=== PATIENT | female | born 1955 | race Caucasian/White ===

== ENCOUNTER 2021-09-17 13:36 | Inpatient (IN) | payer BC ==
[~2021-09-17] VITALS: Ht 170.2 cm; Wt 63.5 kg
[~2021-09-17 13:36] MED LIST: CHLORDIAZEPO-A1 EACH PO; MULTIPLE VITAMINS; NIACIN FLUSH F400 MG
[2021-09-17] MEDS ORDERED: DILTIAZEM HCL 5 MG/ML 5 ML VIAL IV STA (14:05)
[2021-09-17] MEDS ORDERED: METOPROLOL TARTRATE INJ 1 MG/ML VIAL IV STA (14:05)
[2021-09-17] MEDS ORDERED: DIGOXIN INJ 0.25 MG/ML 2 ML AMP IV STA (14:05)
[2021-09-17 14:35] LABS: BASOPHILS # (AUTO) 0.1 (0.0-0.1); HEMATOCRIT 43.7 % (34.2-44.1); HEMOGLOBIN 15.6 g/dL (12.0-16.0); LYMPHOCYTES # (AUTO) 1.2 (1.0-3.2); LYMPHOCYTES % 20.1 % (18.0-39.1); MEAN CORPUSCULAR HEMOGLOBIN 30.8 pg (28-32); MEAN CORPUSCULAR HGB CONC 35.7 g/dL (31-35); MEAN CORPUSCULAR VOLUME 86.4 fL (81-99); MONOCYTES # (AUTO) 0.6 (0.2-0.8); MONOCYTES % 9.4 % (4.4-11.3); NEUTROPHILS # (AUTO) 4.2 (2.1-6.9); NEUTROPHILS % 68.2 % (38.7-80.0); PLATELET COUNT 547 x10e3/uL (140-360); RED BLOOD COUNT 5.06 x10e6/uL (3.6-5.1); RED CELL DISTRIBUTION WIDTH 13.5 % (11.7-14.4)
[2021-09-17] MEDS: SODIUM CHLORIDE 0.9% 1000ML 1,000 ML IV SCH ×2 (14:40→22:47)
[2021-09-17 14:57] LABS: ALBUMIN 3.2 g/dL (3.5-5.0); ALBUMIN/GLOBULIN RATIO 0.9 (0.8-2.0); ANION GAP 18.5 mmol/L (8-16); CALCIUM 10.2 mg/dL (8.4-10.2); CREATININE, SERUM 0.95 mg/dL (0.57-1.11); POTASSIUM 3.5 mmol/L (3.5-5.1)
[2021-09-17 15:03] LABS: CREATINE KINASE MB 6.7 ng/mL (0-5.0)
[2021-09-17 15:53] LABS: CLARITY,URINE SL CLOUDY (CLEAR); COLOR,URINE AMBER (YELLOW); KETONES,URINE 1+ (NEGATIVE); LEUKOCYTE ESTERASE ,URINE NEGATIVE (NEGATIVE); NITRITE,URINE NEGATIVE (NEGATIVE); PROTEIN,URINE DIPSTICK 2+ (NEGATIVE); URINE UROBILINOGEN 1 mg/dL (0.2 - 1)
[2021-09-17 16:06] LABS: AMORPHOUS SEDIMENT,URINE MODERATE (FEW); BACTERIA,URINE MODERATE /HPF; EPITHELIAL CELLS,URINE FEW /LPF; RBC,URINE 0-5 /HPF (0-5); WBC,URINE (MAN) 0-5 /HPF (0-5)
[2021-09-17 16:54] VITALS: BP 158/80
[2021-09-17 16:55] VITALS: BP 158/80
[2021-09-17 16:56] VITALS: BP 158/80
[2021-09-17 17:12] LABS: BAND NEUTROPHILS % (MANUAL) 5 %; LYMPHOCYTES % (MANUAL) 30 % (19-48); METAMYELOCYTES % (MANUAL) 26 % (0-0); MONOCYTES % (MANUAL) 11 % (3.4-9.0); MYELOCYTES % (MANUAL) 4 % (0-0); NEUTROPHILS % (MANUAL) 23 % (40-74); PROMYELOCYTES % (MANUAL) 1 % (0-0)
[2021-09-17 17:13] LABS: PLATELET ESTIMATE MARKEDLY INCREASED; PLATELET MORPHOLOGY COMMENT MODERATE GIANT
[2021-09-17 17:14] LABS: RBC MORPHOLOGY COMMENT NORMAL
[2021-09-17] MEDS: PIPERACILLIN/TAZOBACTAM 3.375 GM in SODIUM CHLORIDE 0.9% 50ML 50 ML IV SCH ×2 (17:20→23:31)
[2021-09-17] MEDS ORDERED: IOPAMIDOL 370 MG/ML 200 ML INFUS..BTL INJ ONE (18:53)
[2021-09-17] MEDS ORDERED: SODIUM CHLORIDE 0.9% 50ML 50 ML ONE (18:53)
[2021-09-17] MEDS ORDERED: METOPROLOL TARTRATE INJ 1 MG/ML VIAL IV ONE (19:05)
[2021-09-17] MEDS ORDERED: DIGOXIN INJ 0.25 MG/ML 2 ML AMP IV ONE (19:05)
[2021-09-17 21:05] VITALS: BP 165/76
[2021-09-17 23:00] VITALS: BP 173/69
[2021-09-17] MEDS: METOCLOPRAMIDE HCL 10 MG/2ML VIAL IV SCH (23:31)
[2021-09-18] VITALS (7 sets, daily range): BP systolic 149–176; BP diastolic 74–87
[2021-09-18] MEDS: SODIUM CHLORIDE 0.9% 1000ML 1,000 ML IV SCH (05:07)
[2021-09-18] MEDS: METOCLOPRAMIDE HCL 10 MG/2ML VIAL IV SCH ×4 (05:07→23:19)
[2021-09-18] MEDS: PIPERACILLIN/TAZOBACTAM 3.375 GM in SODIUM CHLORIDE 0.9% 50ML 50 ML IV SCH ×4 (05:07→23:19)
[2021-09-18 05:21] LABS: BASOPHILS # (AUTO) 0.1 (0.0-0.1); BASOPHILS % 1.3 % (0.0-1.0); EOSINOPHILS % 0.2 % (0.0-6.0); HEMATOCRIT 41.7 % (34.2-44.1); HEMOGLOBIN 14.5 g/dL (12.0-16.0); LYMPHOCYTES # (AUTO) 1.2 (1.0-3.2); LYMPHOCYTES % 19.4 % (18.0-39.1); MEAN CORPUSCULAR HEMOGLOBIN 30.7 pg (28-32); MEAN CORPUSCULAR HGB CONC 34.8 g/dL (31-35); MEAN CORPUSCULAR VOLUME 88.3 fL (81-99); MONOCYTES # (AUTO) 0.5 (0.2-0.8); MONOCYTES % 7.7 % (4.4-11.3); NEUTROPHILS # (AUTO) 4.1 (2.1-6.9); NEUTROPHILS % 69.5 % (38.7-80.0); PLATELET COUNT 469 x10e3/uL (140-360); RED BLOOD COUNT 4.72 x10e6/uL (3.6-5.1); RED CELL DISTRIBUTION WIDTH 13.2 % (11.7-14.4)
[2021-09-18 05:35] LABS: ALBUMIN 2.8 g/dL (3.5-5.0); ALBUMIN/GLOBULIN RATIO 0.8 (0.8-2.0); ANION GAP 18.3 mmol/L (8-16); CALCIUM 9.2 mg/dL (8.4-10.2); CREATININE, SERUM 0.76 mg/dL (0.57-1.11); POTASSIUM 3.3 mmol/L (3.5-5.1)
[2021-09-18 06:20] LABS: CREATINE KINASE MB 3.1 ng/mL (0-5.0)
[2021-09-18 08:27] LABS: BAND NEUTROPHILS % (MANUAL) 18 %; LYMPHOCYTES % (MANUAL) 14 % (19-48); METAMYELOCYTES % (MANUAL) 5 % (0-0); MONOCYTES % (MANUAL) 15 % (3.4-9.0); NEUTROPHILS % (MANUAL) 48 % (40-74); NUCLEATED RED BLOOD CELLS 1
[2021-09-18 08:28] LABS: PLATELET ESTIMATE ADEQUATE; PLATELET MORPHOLOGY COMMENT NORMAL
[2021-09-18 08:29] LABS: RBC MORPHOLOGY COMMENT NORMAL
[2021-09-18] MEDS ORDERED: POTASSIUM CHLORIDE 20 MEQ TAB CR PO NR (09:00)
[2021-09-18] MEDS: DEXTROSE 5%/0.9% SOD CHL 1,000 ML IV SCH ×2 (10:28→22:50)
[2021-09-18] MEDS: CLONIDINE HCL 0.3MG/24 HR PATCH TOP SCH (10:28)
[2021-09-18 13:09] LABS: ANION GAP 16.2 mmol/L (8-16); CALCIUM 8.7 mg/dL (8.4-10.2); CREATININE, SERUM 0.73 mg/dL (0.57-1.11); POTASSIUM 3.2 mmol/L (3.5-5.1)
[2021-09-18 13:44] LABS: CREATINE KINASE MB 3.1 ng/mL (0-5.0)
[2021-09-18] MEDS ORDERED: AMIODARONE 900MG 900 MG in Premix Bag 1 BAG IV ONE (13:45)
[2021-09-18] MEDS ORDERED: AMIODARONE HCL 150MG 100 ML IV ONE (14:00)
[2021-09-18] MEDS: AMIODARONE HCL 360MG 200 ML IV SCH ×2 (17:13→17:15)
[2021-09-18] MEDS: AMIODARONE 900MG 500 ML IV SCH ×3 (17:15→23:15)
[2021-09-18] MEDS ORDERED: AMIODARONE HCL 360MG 200 ML IV SCH (20:00)
[2021-09-18 21:13] LABS: CREATINE KINASE MB 2.5 ng/mL (0-5.0)
[2021-09-19] VITALS (13 sets, daily range): BP systolic 154–189; BP diastolic 69–106
[2021-09-19] MEDS ORDERED: ACETAMINOPHEN 1000 MG/100 ML IV SCH
[2021-09-19] MEDS: PIPERACILLIN/TAZOBACTAM 3.375 GM in SODIUM CHLORIDE 0.9% 50ML 50 ML IV SCH ×3 (06:28→17:53)
[2021-09-19] MEDS: METOCLOPRAMIDE HCL 10 MG/2ML VIAL IV SCH ×3 (06:28→17:38)
[2021-09-19] MEDS: METOPROLOL TARTRATE INJ 1 MG/ML VIAL IV PRN ×3 (09:00→22:14)
[2021-09-19] MEDS: ACETAMINOPHEN 1000 MG/100 ML IV PRN ×2 (09:26→17:15)
[2021-09-19 09:36] LABS: ALBUMIN 2.5 g/dL (3.5-5.0); ALBUMIN/GLOBULIN RATIO 0.9 (0.8-2.0); ANION GAP 12.8 mmol/L (8-16); CALCIUM 8.1 mg/dL (8.4-10.2); CREATININE, SERUM 0.62 mg/dL (0.57-1.11); POTASSIUM 3.8 mmol/L (3.5-5.1)
[2021-09-19] MEDS ORDERED: BISACODYL 5 MG TAB EC PO ONE ×3 (14:00→23:45)
[2021-09-19] MEDS: DEXTROSE 5%/0.9% SOD CHL 1,000 ML IV SCH (14:15)
[2021-09-19] MEDS ORDERED: CITRATE OF MAGNESIA 300ML BOTTLE PO ONE (22:00)
[2021-09-19] MEDS: AMIODARONE 900MG 500 ML IV SCH (22:54)
[2021-09-19] MEDS: ONDANSETRON HCL INJ 2MG/ML 2ML 2 MG/ML VIAL IV PRN (22:54)
[2021-09-20] VITALS (10 sets, daily range): BP systolic 105–177; BP diastolic 65–99
[2021-09-20] MEDS: METOCLOPRAMIDE HCL 10 MG/2ML VIAL IV SCH ×4 (00:16→17:42)
[2021-09-20] MEDS: PIPERACILLIN/TAZOBACTAM 3.375 GM in SODIUM CHLORIDE 0.9% 50ML 50 ML IV SCH ×4 (00:16→17:43)
[2021-09-20] MEDS: ACETAMINOPHEN 1000 MG/100 ML IV PRN ×2 (01:00→17:43)
[2021-09-20] MEDS ORDERED: CITRATE OF MAGNESIA 300ML BOTTLE PO ONE ×2 (05:00→08:00)
[2021-09-20] MEDS: ONDANSETRON HCL INJ 2MG/ML 2ML 2 MG/ML VIAL IV PRN (05:02)
[2021-09-20] MEDS: METOPROLOL TARTRATE INJ 1 MG/ML VIAL IV PRN (06:50)
[2021-09-20] MEDS: PROMETHAZINE 12.5MG/ NACL 0.9% 12.5 MG/50 ML BAG IV PRN ×2 (08:45→21:24)
[2021-09-20] MEDS: DEXTROSE 5%/0.9% SOD CHL 1,000 ML IV SCH (09:58)
[2021-09-20] MEDS ORDERED: LACTULOSE SYRUP 20 GM/30 ML UDC PO ONE ×2 (11:30→21:00)
[2021-09-20 18:00] LABS: ANION GAP 12.8 mmol/L (8-16); CALCIUM 8.3 mg/dL (8.4-10.2); CREATININE, SERUM 0.64 mg/dL (0.57-1.11)
[2021-09-20 18:02] LABS: POTASSIUM 2.8 mmol/L (3.5-5.1)
[2021-09-21] VITALS (10 sets, daily range): BP systolic 130–188; BP diastolic 56–80
[2021-09-21] MEDS: METOCLOPRAMIDE HCL 10 MG/2ML VIAL IV SCH ×4 (00:41→17:12)
[2021-09-21] MEDS: PIPERACILLIN/TAZOBACTAM 3.375 GM in SODIUM CHLORIDE 0.9% 50ML 50 ML IV SCH ×4 (00:42→17:12)
[2021-09-21] MEDS: DEXTROSE 5%/0.9% SOD CHL 1,000 ML IV SCH ×3 (04:10→17:12)
[2021-09-21] MEDS: AMIODARONE 900MG 500 ML IV SCH ×2 (06:39→22:45)
[2021-09-21] MEDS: ACETAMINOPHEN 1000 MG/100 ML IV PRN ×2 (06:40→23:15)
[2021-09-21] MEDS: PROMETHAZINE 12.5MG/ NACL 0.9% 12.5 MG/50 ML BAG IV PRN (08:34)
[2021-09-21 11:59] LABS: BASOPHILS # (AUTO) 0.1 (0.0-0.1); BASOPHILS % 0.9 % (0.0-1.0); EOSINOPHILS % 0.1 % (0.0-6.0); HEMATOCRIT 41.7 % (34.2-44.1); HEMOGLOBIN 14.3 g/dL (12.0-16.0); LYMPHOCYTES # (AUTO) 1.6 (1.0-3.2); LYMPHOCYTES % 20.6 % (18.0-39.1); MEAN CORPUSCULAR HEMOGLOBIN 30.7 pg (28-32); MEAN CORPUSCULAR HGB CONC 34.3 g/dL (31-35); MEAN CORPUSCULAR VOLUME 89.5 fL (81-99); MONOCYTES # (AUTO) 0.8 (0.2-0.8); MONOCYTES % 9.9 % (4.4-11.3); NEUTROPHILS # (AUTO) 5.3 (2.1-6.9); NEUTROPHILS % 67.1 % (38.7-80.0); PLATELET COUNT 387 x10e3/uL (140-360); RED BLOOD COUNT 4.66 x10e6/uL (3.6-5.1); RED CELL DISTRIBUTION WIDTH 13.9 % (11.7-14.4)
[2021-09-21 12:27] LABS: ANION GAP 12.8 mmol/L (8-16); CALCIUM 8.4 mg/dL (8.4-10.2); CREATININE, SERUM 0.67 mg/dL (0.57-1.11); POTASSIUM 2.8 mmol/L (3.5-5.1)
[2021-09-21] MEDS ORDERED: PROPOFOL IV EMULSION 10 MG/ML 20 ML VIAL ONE (12:32)
[2021-09-21] MEDS ORDERED: HYOSCYAMINE SULFATE 0.5 MG/ML INJ ONE (12:32)
[2021-09-21] MEDS ORDERED: LIDOCAINE HCL 2% LOCAL INJ 5 ML SDV VIAL INJ ONE (12:32)
[2021-09-21] MEDS ORDERED: POTASSIUM CHLORIDE 20MEQ/100ML 200 ML IV ONE (13:30)
[2021-09-21] MEDS: FUROSEMIDE INJ 10 MG/ML 2 ML VIAL IV SCH (17:12)
[2021-09-21] MEDS ORDERED: OXYMETAZOLINE HCL 0.05% NAS 1 SPRAY BTL ONE (18:43)
[2021-09-21] MEDS ORDERED: CHLORASEPTIC SPRAY 177 ML BTL MM PRN (19:45)
[2021-09-22] VITALS (11 sets, daily range): BP systolic 114–164; BP diastolic 55–70
[2021-09-22] MEDS: PIPERACILLIN/TAZOBACTAM 3.375 GM in SODIUM CHLORIDE 0.9% 50ML 50 ML IV SCH ×5 (00:52→23:49)
[2021-09-22] MEDS: METOCLOPRAMIDE HCL 10 MG/2ML VIAL IV SCH ×5 (00:52→23:49)
[2021-09-22 05:23] LABS: ANION GAP 11.9 mmol/L (8-16); CREATININE, SERUM 0.67 mg/dL (0.57-1.11)
[2021-09-22 05:35] LABS: POTASSIUM 2.9 mmol/L (3.5-5.1)
[2021-09-22] MEDS: DEXTROSE 5%/0.9% SOD CHL 1,000 ML IV SCH ×2 (06:07→20:10)
[2021-09-22] MEDS: FUROSEMIDE INJ 10 MG/ML 2 ML VIAL IV SCH ×2 (08:28→17:48)
[2021-09-22] MEDS ORDERED: POTASSIUM CHLORIDE 20MEQ/100ML 300 ML IV ONE (09:30)
[2021-09-22] MEDS ORDERED: MIDAZOLAM HCL 2 MG/2 ML VIAL ONE (13:21)
[2021-09-22] MEDS ORDERED: FENTANYL CITRATE/PF 100MCG/2 ML INJ ONE (13:21)
[2021-09-22] MEDS ORDERED: ENOXAPARIN SODIUM INJ 100 MG/ML SYR SC SCH (14:00)
[2021-09-22] MEDS: ENOXAPARIN SOD INJ 60 MG/0.6 ML SYR SC SCH (15:12)
[2021-09-22 19:29] LABS: ANION GAP 12.8 mmol/L (8-16); CALCIUM 8.1 mg/dL (8.4-10.2); CREATININE, SERUM 0.67 mg/dL (0.57-1.11); POTASSIUM 3.8 mmol/L (3.5-5.1)
[2021-09-22] MEDS: AMIODARONE 900MG 500 ML IV SCH (21:37)
[2021-09-22] MEDS: ACETAMINOPHEN 1000 MG/100 ML IV PRN (23:49)
[2021-09-23] VITALS (9 sets, daily range): BP systolic 121–172; BP diastolic 55–67
[2021-09-23] MEDS: ENOXAPARIN SOD INJ 60 MG/0.6 ML SYR SC SCH (02:04)
[2021-09-23] MEDS ORDERED: ACETAMINOPHEN 1000 MG/100 ML IV PRN ×2 (02:30→11:00)
[2021-09-23] MEDS: METOCLOPRAMIDE HCL 10 MG/2ML VIAL IV SCH ×3 (05:40→17:09)
[2021-09-23] MEDS: PIPERACILLIN/TAZOBACTAM 3.375 GM in SODIUM CHLORIDE 0.9% 50ML 50 ML IV SCH ×3 (05:40→17:09)
[2021-09-23] MEDS: FUROSEMIDE INJ 10 MG/ML 2 ML VIAL IV SCH ×2 (08:23→16:43)
[2021-09-23] MEDS: DEXTROSE 5%/0.9% SOD CHL 1,000 ML IV SCH (08:24)
[2021-09-23] MEDS ORDERED: DIPHENHYDRAMINE HCL INJ 50 MG/ML VIAL IM PRN (11:00)
[2021-09-23] MEDS ORDERED: MORPHINE SULFATE 1 MG/ML 30ML PCA IV PRN (11:00)
[2021-09-23] MEDS ORDERED: NALOXONE HCL INJ 0.4 MG/ML AMP IV PRN (11:00)
[2021-09-23] MEDS ORDERED: ONDANSETRON HCL INJ 2MG/ML 2ML 2 MG/ML VIAL IV PRN (11:00)
[2021-09-23] MEDS ORDERED: MORPHINE SULFATE 1 MG/ML 30ML PCA ONE (11:26)
[2021-09-23] MEDS: SODIUM CHLORIDE 0.9% 250ML IRRIG IR SCH ×3 (12:25→19:31)
[2021-09-23] MEDS: DEXTROSE 5%/LACTATED RINGERS 1,000 ML IV SCH ×2 (12:25→20:46)
[2021-09-23] MEDS ORDERED: SEVOFLURANE INHAL SOLN 250 ML PEN BTL ONE (12:39)
[2021-09-23] MEDS ORDERED: DEXAMETHASONE SOD PHOS INJ 4 MG/ML SDV ONE (12:39)
[2021-09-23] MEDS ORDERED: EPHEDRINE SULFATE INJ 50 MG/ML VIAL ONE (12:39)
[2021-09-23] MEDS ORDERED: ROCURONIUM BROMIDE 10 MG/ML 5ML VIAL IV ONE (12:39)
[2021-09-23] MEDS ORDERED: ONDANSETRON HCL INJ 2MG/ML 2ML 2 MG/ML VIAL ONE (12:39)
[2021-09-23] MEDS ORDERED: POVIDONE IODINE 0.05% 0.05 % ML PO ONE (12:39)
[2021-09-23] MEDS ORDERED: LIDOCAINE HCL 2% LOCAL INJ 5 ML SDV VIAL INJ ONE (12:39)
[2021-09-23] MEDS ORDERED: PROPOFOL IV EMULSION 10 MG/ML 20 ML VIAL ONE (12:39)
[2021-09-24] VITALS (12 sets, daily range): BP systolic 108–160; BP diastolic 50–95
[2021-09-24] MEDS: SODIUM CHLORIDE 0.9% 250ML IRRIG IR SCH ×6 (00:27→22:05)
[2021-09-24] MEDS: PIPERACILLIN/TAZOBACTAM 3.375 GM in SODIUM CHLORIDE 0.9% 50ML 50 ML IV SCH ×4 (00:55→17:38)
[2021-09-24] MEDS: AMIODARONE 900MG 500 ML IV SCH (00:55)
[2021-09-24] MEDS: METOCLOPRAMIDE HCL 10 MG/2ML VIAL IV SCH ×2 (00:55→05:32)
[2021-09-24] MEDS ORDERED: PIPERACILLIN/TAZOBACTAM 3.375 GM VIAL ONE (05:28)
[2021-09-24] MEDS: DEXTROSE 5%/LACTATED RINGERS 1,000 ML IV SCH ×3 (05:29→22:05)
[2021-09-24 06:01] LABS: BASOPHILS # (AUTO) 0.2 (0.0-0.1); BASOPHILS % 0.8 % (0.0-1.0); HEMATOCRIT 33.3 % (34.2-44.1); HEMOGLOBIN 10.9 g/dL (12.0-16.0); LYMPHOCYTES # (AUTO) 1.6 (1.0-3.2); LYMPHOCYTES % 8.9 % (18.0-39.1); MEAN CORPUSCULAR HEMOGLOBIN 30.1 pg (28-32); MEAN CORPUSCULAR HGB CONC 32.7 g/dL (31-35); MONOCYTES # (AUTO) 0.7 (0.2-0.8); MONOCYTES % 3.6 % (4.4-11.3); NEUTROPHILS # (AUTO) 15.2 (2.1-6.9); NEUTROPHILS % 85.1 % (38.7-80.0); PLATELET COUNT 265 x10e3/uL (140-360); RED BLOOD COUNT 3.62 x10e6/uL (3.6-5.1); RED CELL DISTRIBUTION WIDTH 14.4 % (11.7-14.4)
[2021-09-24 06:36] LABS: ANION GAP 11.3 mmol/L (8-16); CALCIUM 7.7 mg/dL (8.4-10.2); CREATININE, SERUM 0.61 mg/dL (0.57-1.11); POTASSIUM 3.3 mmol/L (3.5-5.1)
[2021-09-24] MEDS: FUROSEMIDE INJ 10 MG/ML 2 ML VIAL IV SCH ×2 (09:00→17:00)
[2021-09-24] MEDS ORDERED: KCL 20 MEQ PACKET/ ORAL SOLN NG ONE (10:00)
[2021-09-24] MEDS ORDERED: POTASSIUM CHLORIDE 10MEQ/100ML 200 ML IV ONE (10:30)
[2021-09-24] MEDS: ENOXAPARIN SOD INJ 60 MG/0.6 ML SYR SC SCH (14:00)
[2021-09-24] MEDS ORDERED: MORPHINE SULFATE 1 MG/ML 30ML PCA IV PRN (14:15)
[2021-09-25] VITALS (8 sets, daily range): BP systolic 132–175; BP diastolic 60–75
[2021-09-25] MEDS: PIPERACILLIN/TAZOBACTAM 3.375 GM in SODIUM CHLORIDE 0.9% 50ML 50 ML IV SCH ×4 (00:21→16:57)
[2021-09-25] MEDS: ENOXAPARIN SOD INJ 60 MG/0.6 ML SYR SC SCH ×2 (02:12→14:37)
[2021-09-25] MEDS: SODIUM CHLORIDE 0.9% 250ML IRRIG IR SCH ×5 (04:25→19:00)
[2021-09-25 05:05] LABS: BASOPHILS # (AUTO) 0.1 (0.0-0.1); BASOPHILS % 0.4 % (0.0-1.0); HEMATOCRIT 27.4 % (34.2-44.1); HEMOGLOBIN 8.9 g/dL (12.0-16.0); LYMPHOCYTES # (AUTO) 1.4 (1.0-3.2); LYMPHOCYTES % 9.4 % (18.0-39.1); MEAN CORPUSCULAR HEMOGLOBIN 30.6 pg (28-32); MEAN CORPUSCULAR HGB CONC 32.5 g/dL (31-35); MEAN CORPUSCULAR VOLUME 94.2 fL (81-99); MONOCYTES # (AUTO) 0.7 (0.2-0.8); MONOCYTES % 4.3 % (4.4-11.3); NEUTROPHILS # (AUTO) 12.6 (2.1-6.9); PLATELET COUNT 221 x10e3/uL (140-360); RED BLOOD COUNT 2.91 x10e6/uL (3.6-5.1); RED CELL DISTRIBUTION WIDTH 14.6 % (11.7-14.4)
[2021-09-25] MEDS: DEXTROSE 5%/LACTATED RINGERS 1,000 ML IV SCH ×3 (05:54→23:42)
[2021-09-25 06:29] LABS: CREATININE, SERUM 0.53 mg/dL (0.57-1.11)
[2021-09-25] MEDS: CLONIDINE HCL 0.3MG/24 HR PATCH TOP SCH (08:46)
[2021-09-25] MEDS: FUROSEMIDE INJ 10 MG/ML 4 ML VIAL IV SCH ×2 (08:46→16:57)
[2021-09-25] MEDS ORDERED: POTASSIUM CHLORIDE 20MEQ/100ML 200 ML IV ONE (09:30)
[2021-09-26] VITALS (7 sets, daily range): BP systolic 126–142; BP diastolic 55–70
[2021-09-26] MEDS: ENOXAPARIN SOD INJ 60 MG/0.6 ML SYR SC SCH ×3 (01:09→21:31)
[2021-09-26] MEDS: PIPERACILLIN/TAZOBACTAM 3.375 GM in SODIUM CHLORIDE 0.9% 50ML 50 ML IV SCH ×2 (01:09→06:11)
[2021-09-26 05:47] LABS: BASOPHILS % 0.3 % (0.0-1.0); EOSINOPHILS % 0.2 % (0.0-6.0); HEMATOCRIT 27.8 % (34.2-44.1); HEMOGLOBIN 9.3 g/dL (12.0-16.0); LYMPHOCYTES # (AUTO) 1.6 (1.0-3.2); MEAN CORPUSCULAR HEMOGLOBIN 30.6 pg (28-32); MEAN CORPUSCULAR HGB CONC 33.5 g/dL (31-35); MEAN CORPUSCULAR VOLUME 91.4 fL (81-99); MONOCYTES # (AUTO) 0.6 (0.2-0.8); NEUTROPHILS # (AUTO) 12.4 (2.1-6.9); NEUTROPHILS % 83.3 % (38.7-80.0); PLATELET COUNT 267 x10e3/uL (140-360); RED BLOOD COUNT 3.04 x10e6/uL (3.6-5.1)
[2021-09-26 06:14] LABS: ANION GAP 9.8 mmol/L (8-16); CALCIUM 7.5 mg/dL (8.4-10.2); CREATININE, SERUM 0.52 mg/dL (0.57-1.11)
[2021-09-26] MEDS ORDERED: Morphine 4mg Syringe 4 MG/ML INJ IV PRN (06:15)
[2021-09-26 06:39] LABS: POTASSIUM 2.8 mmol/L (3.5-5.1)
[2021-09-26] MEDS ORDERED: POTASSIUM CHLORIDE 20 MEQ TAB CR PO ONE (07:20)
[2021-09-26] MEDS: HYDROCODONE/APAP 5MG-325MG TAB PO PRN ×2 (08:25→20:58)
[2021-09-26] MEDS: FUROSEMIDE INJ 10 MG/ML 4 ML VIAL IV SCH (08:27)
[2021-09-26] MEDS ORDERED: POTASSIUM CHLORIDE 20MEQ/100ML 300 ML IV ONE (08:30)
[2021-09-26] MEDS ORDERED: MAGNESIUM SULFATE 2GM/50ML 50 ML IV ONE (09:30)
[2021-09-26] MEDS: MAGNESIUM OXIDE 400 MG TAB PO SCH ×2 (11:52→18:17)
[2021-09-26 12:31] LABS: MAGNESIUM 1.7 MG/DL (1.3-2.1); POTASSIUM 3.4 mmol/L (3.5-5.1)
[2021-09-26] MEDS ORDERED: POTASSIUM CHLORIDE 20 MEQ TAB CR PO STA (17:12)
[2021-09-27] VITALS (8 sets, daily range): BP systolic 106–147; BP diastolic 54–73
[2021-09-27] MEDS: HYDROCODONE/APAP 5MG-325MG TAB PO PRN ×4 (01:35→21:00)
[2021-09-27] MEDS ORDERED: FUROSEMIDE 40 MG TAB PO SCH (06:00)
[2021-09-27] MEDS: FUROSEMIDE 40 MG TAB PO SCH ×2 (06:24→17:29)
[2021-09-27 06:42] LABS: ANION GAP 10.5 mmol/L (8-16); CREATININE, SERUM 0.5 mg/dL (0.57-1.11); POTASSIUM 3.5 mmol/L (3.5-5.1)
[2021-09-27] MEDS ORDERED: LOSARTAN POTASSIUM 25 MG TAB PO SCH (09:00)
[2021-09-27] MEDS: METOPROLOL TARTRATE 25 MG TAB PO SCH ×2 (09:10→21:25)
[2021-09-27] MEDS: ENOXAPARIN SOD INJ 60 MG/0.6 ML SYR SC SCH ×2 (09:10→22:00)
[2021-09-27] MEDS: MAGNESIUM OXIDE 400 MG TAB PO SCH ×2 (09:10→16:06)
[2021-09-27] MEDS ORDERED: ONDANSETRON HCL 4 MG ORAL DISINTEGRATING TAB PO PRN (09:15)
[2021-09-27] MEDS: POTASSIUM CHLORIDE 20 MEQ TAB CR PO SCH (09:48)
[2021-09-27] MEDS: LOSARTAN POTASSIUM 25 MG TAB PO SCH ×2 (21:00→23:40)
[2021-09-28] VITALS: BP 141/63
[2021-09-28] MEDS ORDERED: METOCLOPRAMIDE HCL 10 MG/2ML VIAL IV SCH
[2021-09-28] MEDS ORDERED: PROMETHAZINE 12.5MG/ NACL 0.9% 12.5 MG/50 ML BAG IV PRN (00:15)
[2021-09-28 04:00] VITALS: BP 140/51
[2021-09-28 04:57] LABS: BASOPHILS % 0.3 % (0.0-1.0); EOSINOPHILS # (AUTO) 0.1 (0.0-0.4); EOSINOPHILS % 0.5 % (0.0-6.0); HEMATOCRIT 24.4 % (34.2-44.1); HEMOGLOBIN 8.3 g/dL (12.0-16.0); LYMPHOCYTES # (AUTO) 1.7 (1.0-3.2); LYMPHOCYTES % 13.6 % (18.0-39.1); MEAN CORPUSCULAR HEMOGLOBIN 31.1 pg (28-32); MEAN CORPUSCULAR VOLUME 91.4 fL (81-99); MONOCYTES # (AUTO) 0.7 (0.2-0.8); MONOCYTES % 5.6 % (4.4-11.3); NEUTROPHILS # (AUTO) 10.2 (2.1-6.9); NEUTROPHILS % 79.1 % (38.7-80.0); PLATELET COUNT 290 x10e3/uL (140-360); RED BLOOD COUNT 2.67 x10e6/uL (3.6-5.1); RED CELL DISTRIBUTION WIDTH 14.1 % (11.7-14.4)
[2021-09-28 05:17] LABS: ANION GAP 10.9 mmol/L (8-16); CALCIUM 7.6 mg/dL (8.4-10.2); CREATININE, SERUM 0.5 mg/dL (0.57-1.11)
[2021-09-28 05:20] LABS: POTASSIUM 2.9 mmol/L (3.5-5.1)
[2021-09-28] MEDS ORDERED: POTASSIUM CHLORIDE 20 MEQ TAB CR PO STA ×2 (05:58→11:51)
[2021-09-28] MEDS: HYDROCODONE/APAP 5MG-325MG TAB PO PRN (06:21)
[2021-09-28] MEDS ORDERED: HYDROCODON-ACE1 EA11 PO (06:38)
[2021-09-28] MEDS ORDERED: LOSARTAN POTASS25 MG PO (06:49)
[2021-09-28] MEDS ORDERED: METOPROLOL SUCC25 MG PO (06:49)
[2021-09-28 07:46] VITALS: BP 124/72
[2021-09-28 07:58] VITALS: BP 124/72
[2021-09-28] MEDS: POTASSIUM CHLORIDE 20 MEQ TAB CR PO SCH (09:55)
[2021-09-28] MEDS: MAGNESIUM OXIDE 400 MG TAB PO SCH (09:55)
[2021-09-28] MEDS: ENOXAPARIN SOD INJ 60 MG/0.6 ML SYR SC SCH (09:55)
[2021-09-28] MEDS: LOSARTAN POTASSIUM 25 MG TAB PO SCH (09:56)
[2021-09-28] MEDS: METOPROLOL TARTRATE 25 MG TAB PO SCH (09:56)
[2021-09-28] MEDS ORDERED: MAGNESIUM OXIDE 400 MG TAB PO ONE (12:00)
[2021-09-28 12:44] LABS: MAGNESIUM 1.7 MG/DL (1.3-2.1); POTASSIUM 3.4 mmol/L (3.5-5.1)
[2021-11-01] MEDS ORDERED: ELIQUIS5 MG PO (11:34)
[2021-11-01] MEDS ORDERED: ASPIRIN81 MG PO (11:34)
[2021-11-01] MEDS ORDERED: CO Q-1010 MG PO (11:34)
[2021-11-01] MEDS ORDERED: VITAMIN D3 COM1 EACH PO (11:34)
[2021-11-01] MEDS ORDERED: PRAVASTATIN SOD40 MG PO (11:34)
[2021-11-01] MEDS ORDERED: OMEGA 3 1,0001 EACH PO (11:34)
== END 2021-09-28 13:04 | disposition home or self-care (01) | DRG 329 ==
LOC: ER 13:42 → ERHOLD 14:12 → MED/SURG 16:42 → IMCU 21:14 → MED/SURG2 09-25 14:22
PROVIDERS: ADMIT Internal Medicine; ATTEND Internal Medicine
PROC: 0DB68ZX Excision of Stomach, Via Natural or Artificial Opening Endoscopic, Diagnostic (ICD-10-PCS; principal; 2021-09-17)
PROC: 0DBN8ZX Excision of Sigmoid Colon, Via Natural or Artificial Opening Endoscopic, Diagnostic (ICD-10-PCS; 2021-09-17)
PROC: 0DBN0ZZ Excision of Sigmoid Colon, Open Approach (ICD-10-PCS; 2021-09-23)
PROC: 0D1N0Z4 Bypass Sigmoid Colon to Cutaneous, Open Approach (ICD-10-PCS; 2021-09-23)
DX: K56.601 Complete intestinal obstruction, unspecified as to cause (principal); I50.31 Acute diastolic (congestive) heart failure; E87.1 Hypo-osmolality and hyponatremia; N17.9 Acute kidney failure, unspecified; K22.10 Ulcer of esophagus without bleeding; K57.20 Diverticulitis of large intestine with perforation and abscess without bleeding; F17.200 Nicotine dependence, unspecified, uncomplicated; K80.80 Other cholelithiasis without obstruction; E87.6 Hypokalemia; K29.70 Gastritis, unspecified, without bleeding; K64.8 Other hemorrhoids; F41.9 Anxiety disorder, unspecified; E83.42 Hypomagnesemia; I11.0 Hypertensive heart disease with heart failure; I48.0 Paroxysmal atrial fibrillation; J44.9 Chronic obstructive pulmonary disease, unspecified; F17.210 Nicotine dependence, cigarettes, uncomplicated; K21.9 Gastro-esophageal reflux disease without esophagitis; Z20.822 Contact with and (suspected) exposure to COVID-19
CPT/HCPCS: 36415; 43239; 45380; 71045; 74177; 80048; 80053; 81001; 82550; 82553; 82948; 83690; 83735; 83880; 84132; 84484; 85025; 88304; 88305; 88307; 88312; 88342; 93005; 93306; 94799; 97139; 99284; J1100; J1160; J1650; J1940; J1980; J2001; J2250; J2270; J2405; J2543; J2550; J2765; J3010; J3480; J7030; J7042; Q9967; U0002

== ENCOUNTER → 2021-11-09 | Day surgery (SDC) | payer BC ==
[2021-11-06 08:50] LABS: BASOPHILS # (AUTO) 0.1 (0.0-0.1); BASOPHILS % 0.5 % (0.0-1.0); EOSINOPHILS # (AUTO) 0.1 (0.0-0.4); EOSINOPHILS % 0.5 % (0.0-6.0); HEMATOCRIT 38.9 % (34.2-44.1); HEMOGLOBIN 12.3 g/dL (12.0-16.0); LYMPHOCYTES # (AUTO) 1.8 (1.0-3.2); LYMPHOCYTES % 19.1 % (18.0-39.1); MEAN CORPUSCULAR HEMOGLOBIN 30.2 pg (28-32); MEAN CORPUSCULAR HGB CONC 31.6 g/dL (31-35); MEAN CORPUSCULAR VOLUME 95.6 fL (81-99); MONOCYTES # (AUTO) 0.4 (0.2-0.8); MONOCYTES % 4.5 % (4.4-11.3); NEUTROPHILS % 74.9 % (38.7-80.0); PLATELET COUNT 379 x10e3/uL (140-360); RED BLOOD COUNT 4.07 x10e6/uL (3.6-5.1); RED CELL DISTRIBUTION WIDTH 15.5 % (11.7-14.4)
[~2021-11-09] MED LIST changes: +ASPIRIN81 MG PO; +CO Q-1010 MG PO; +ELIQUIS5 MG PO; +HYDROCODON-ACE1 EA11 PO; +HYOSCYAMINE SULFATE 0.5 MG/ML INJ ONE; +LIDOCAINE HCL 2% LOCAL INJ 5 ML SDV VIAL INJ ONE; +LOSARTAN POTASS25 MG PO; +METOPROLOL SUCC25 MG PO; +OMEGA 3 1,0001 EACH PO; +PRAVASTATIN SOD40 MG PO; +PROPOFOL IV EMULSION 10 MG/ML 20 ML VIAL ONE; +VITAMIN D3 COM1 EACH PO
[2021-11-09 10:10] VITALS: BP 135/75
== END | disposition home or self-care (01) ==
LOC: OR 06:57
PROVIDERS: ATTEND Internal Medicine Gastroenterology
DX: Z48.815 Encounter for surgical aftercare following surgery on the digestive system (principal); D12.3 Benign neoplasm of transverse colon; K62.1 Rectal polyp; K57.30 Diverticulosis of large intestine without perforation or abscess without bleeding; Z93.3 Colostomy status; Z90.49 Acquired absence of other specified parts of digestive tract; K59.00 Constipation, unspecified; K64.8 Other hemorrhoids; Z71.3 Dietary counseling and surveillance; J44.9 Chronic obstructive pulmonary disease, unspecified; I25.10 Atherosclerotic heart disease of native coronary artery without angina pectoris; I10 Essential (primary) hypertension; I48.91 Unspecified atrial fibrillation; E78.00 Pure hypercholesterolemia, unspecified; F17.210 Nicotine dependence, cigarettes, uncomplicated; Z88.2 Allergy status to sulfonamides; Z01.812 Encounter for preprocedural laboratory examination; Z20.822 Contact with and (suspected) exposure to COVID-19; Z79.02 Long term (current) use of antithrombotics/antiplatelets; Z79.82 Long term (current) use of aspirin; Z79.899 Other long term (current) drug therapy; Z80.0 Family history of malignant neoplasm of digestive organs
CPT/HCPCS: 36415; 44394; 85025; J1980; J2001; J2704; U0002; 45378; 45380; 45385

== ENCOUNTER 2021-12-04 06:11 | Inpatient (IN) | payer BC ==
[2021-11-30 11:20] LABS: BASOPHILS # (AUTO) 0.1 (0.0-0.1); BASOPHILS % 0.7 % (0.0-1.0); EOSINOPHILS % 0.5 % (0.0-6.0); HEMATOCRIT 42.1 % (34.2-44.1); HEMOGLOBIN 13.5 g/dL (12.0-16.0); LYMPHOCYTES # (AUTO) 2.2 (1.0-3.2); LYMPHOCYTES % 29.6 % (18.0-39.1); MEAN CORPUSCULAR HGB CONC 32.1 g/dL (31-35); MEAN CORPUSCULAR VOLUME 93.6 fL (81-99); MONOCYTES # (AUTO) 0.5 (0.2-0.8); MONOCYTES % 7.1 % (4.4-11.3); NEUTROPHILS # (AUTO) 4.7 (2.1-6.9); NEUTROPHILS % 61.8 % (38.7-80.0); PLATELET COUNT 380 x10e3/uL (140-360); RED CELL DISTRIBUTION WIDTH 14.6 % (11.7-14.4)
[2021-11-30 11:40] LABS: ALBUMIN 3.4 g/dL (3.5-5.0); ALBUMIN/GLOBULIN RATIO 0.8 (0.8-2.0); CREATININE, SERUM 0.62 mg/dL (0.57-1.11)
[~2021-12-04] VITALS: Ht 170.2 cm; Wt 57.2 kg
[2021-12-04] VITALS (7 sets, daily range): BP systolic 126–185; BP diastolic 51–70
[~2021-12-04 06:11] MED LIST changes: -HYOSCYAMINE SULFATE 0.5 MG/ML INJ ONE; -LIDOCAINE HCL 2% LOCAL INJ 5 ML SDV VIAL INJ ONE; -PROPOFOL IV EMULSION 10 MG/ML 20 ML VIAL ONE
[2021-12-04] MEDS ORDERED: ACETAMINOPHEN 1000 MG/100 ML IV PRN (08:45)
[2021-12-04] MEDS ORDERED: KETOROLAC TROMETHAMINE 30 MG/ML VIAL IV PRN (08:45)
[2021-12-04] MEDS ORDERED: NALOXONE HCL INJ 0.4 MG/ML AMP IV PRN (08:45)
[2021-12-04] MEDS ORDERED: DIPHENHYDRAMINE HCL INJ 50 MG/ML VIAL IM PRN (08:45)
[2021-12-04] MEDS: MORPHINE SULFATE 1 MG/ML 30ML PCA IV PRN (09:31)
[2021-12-04] MEDS ORDERED: METOCLOPRAMIDE HCL 10 MG/2ML VIAL ONE (10:06)
[2021-12-04] MEDS: DEXTROSE 5%/LACTATED RINGERS 1,000 ML IV SCH ×2 (10:50→18:11)
[2021-12-04] MEDS ORDERED: MIDAZOLAM HCL 2 MG/2 ML VIAL ONE (13:12)
[2021-12-04] MEDS ORDERED: FENTANYL CITRATE/PF 100MCG/2 ML INJ ONE (13:12)
[2021-12-04 14:10] LABS: ANION GAP 12.2 mmol/L (8-16); CALCIUM 8.3 mg/dL (8.4-10.2); CREATININE, SERUM 0.79 mg/dL (0.57-1.11); POTASSIUM 4.2 mmol/L (3.5-5.1)
[2021-12-05] VITALS (9 sets, daily range): BP systolic 186–199; BP diastolic 56–75
[2021-12-05] MEDS: METOPROLOL SUCCINATE 25 MG TAB XL PO SCH ×3 (01:03→20:22)
[2021-12-05] MEDS: DEXTROSE 5%/LACTATED RINGERS 1,000 ML IV SCH ×3 (01:58→16:49)
[2021-12-05 05:06] LABS: BASOPHILS % 0.1 % (0.0-1.0); EOSINOPHILS % 0.1 % (0.0-6.0); HEMATOCRIT 37.2 % (34.2-44.1); LYMPHOCYTES # (AUTO) 1.9 (1.0-3.2); LYMPHOCYTES % 18.5 % (18.0-39.1); MEAN CORPUSCULAR HEMOGLOBIN 30.2 pg (28-32); MEAN CORPUSCULAR HGB CONC 32.3 g/dL (31-35); MEAN CORPUSCULAR VOLUME 93.7 fL (81-99); MONOCYTES # (AUTO) 0.9 (0.2-0.8); MONOCYTES % 8.5 % (4.4-11.3); NEUTROPHILS # (AUTO) 7.3 (2.1-6.9); NEUTROPHILS % 72.4 % (38.7-80.0); PLATELET COUNT 296 x10e3/uL (140-360); RED BLOOD COUNT 3.97 x10e6/uL (3.6-5.1); RED CELL DISTRIBUTION WIDTH 14.3 % (11.7-14.4)
[2021-12-05 05:25] LABS: ANION GAP 10.9 mmol/L (8-16); CALCIUM 8.2 mg/dL (8.4-10.2); CREATININE, SERUM 0.63 mg/dL (0.57-1.11); POTASSIUM 3.9 mmol/L (3.5-5.1)
[2021-12-05] MEDS ORDERED: LOSARTAN POTASSIUM 25 MG TAB PO SCH (09:00)
[2021-12-05] MEDS: MORPHINE SULFATE 1 MG/ML 30ML PCA IV PRN (10:43)
[2021-12-05] MEDS ORDERED: ROCURONIUM BROMIDE 10 MG/ML 5ML VIAL IV ONE (13:33)
[2021-12-05] MEDS ORDERED: LIDOCAINE HCL 2% LOCAL INJ 5 ML SDV VIAL INJ ONE (13:33)
[2021-12-05] MEDS ORDERED: POVIDONE IODINE 0.05% 0.05 % ML PO ONE (13:33)
[2021-12-05] MEDS ORDERED: NEOSTIGMINE 1 MG/ML 10ML VIAL ONE (13:33)
[2021-12-05] MEDS ORDERED: GLYCOPYRROLATE INJ 0.2 MG/ML VIAL ONE (13:33)
[2021-12-05] MEDS ORDERED: SEVOFLURANE INHAL SOLN 250 ML PEN BTL ONE (13:33)
[2021-12-05] MEDS ORDERED: PROPOFOL IV EMULSION 10 MG/ML 20 ML VIAL ONE (13:33)
[2021-12-05] MEDS ORDERED: ONDANSETRON HCL INJ 2MG/ML 2ML 2 MG/ML VIAL ONE (13:33)
[2021-12-05] MEDS ORDERED: KETOROLAC TROMETHAMINE 30 MG/ML VIAL ONE (13:33)
[2021-12-05] MEDS ORDERED: DEXAMETHASONE SOD PHOS INJ 4 MG/ML SDV ONE (13:33)
[2021-12-05] MEDS: HYDRALAZINE HCL 20 MG/ML VIAL IV PRN (14:43)
[2021-12-05] MEDS: LOSARTAN POTASSIUM 25 MG TAB PO SCH (16:49)
[2021-12-06] VITALS (10 sets, daily range): BP systolic 171–199; BP diastolic 59–76
[2021-12-06] MEDS: HYDRALAZINE HCL 20 MG/ML VIAL IV PRN ×2 (00:59→16:25)
[2021-12-06 05:27] LABS: HEMATOCRIT 37.2 % (34.2-44.1); MEAN CORPUSCULAR HEMOGLOBIN 30.2 pg (28-32); MEAN CORPUSCULAR HGB CONC 32.3 g/dL (31-35); MEAN CORPUSCULAR VOLUME 93.5 fL (81-99); PLATELET COUNT 302 x10e3/uL (140-360); RED BLOOD COUNT 3.98 x10e6/uL (3.6-5.1); RED CELL DISTRIBUTION WIDTH 14.5 % (11.7-14.4)
[2021-12-06 05:31] LABS: ANION GAP 10.3 mmol/L (8-16); BLOOD UREA NITROGEN < 5 mg/dL (7-26); CALCIUM 8.9 mg/dL (8.4-10.2); CARBON DIOXIDE 30 mmol/L (22-29); CHLORIDE 102 mmol/L (98-107); EST GLOMERULAR FILTRATION RATE 124 ML/MIN (60-); GLUCOSE 104 mg/dL (74-118); POTASSIUM 3.3 mmol/L (3.5-5.1); SODIUM 139 mmol/L (136-145)
[2021-12-06 05:32] LABS: BUN/CREATININE RATIO 10 (6-25)
[2021-12-06] MEDS ORDERED: POTASSIUM CHLORIDE 20 MEQ TAB CR PO ONE (07:00)
[2021-12-06] MEDS: LOSARTAN POTASSIUM 25 MG TAB PO SCH (08:50)
[2021-12-06] MEDS: METOPROLOL SUCCINATE 25 MG TAB XL PO SCH ×2 (08:51→21:30)
[2021-12-06 09:20] LABS: EOSINOPHILS % (MANUAL) 1 % (0-7); LYMPHOCYTES % (MANUAL) 12 % (19-48); MONOCYTES % (MANUAL) 4 % (3.4-9.0); NEUTROPHILS % (MANUAL) 83 % (40-74)
[2021-12-06 09:21] LABS: PLATELET ESTIMATE ADEQUATE; PLATELET MORPHOLOGY COMMENT NORMAL; RBC MORPHOLOGY COMMENT NORMAL
[2021-12-06] MEDS: AMLODIPINE BESYLATE 5 MG TAB PO SCH (14:02)
[2021-12-06] MEDS: LOSARTAN POTASSIUM 100 MG TAB PO SCH (14:02)
[2021-12-07] VITALS (8 sets, daily range): BP systolic 136–179; BP diastolic 76–99
[2021-12-07 06:09] LABS: CALCIUM 9.5 mg/dL (8.4-10.2); CREATININE, SERUM 0.53 mg/dL (0.57-1.11)
[2021-12-07] MEDS: METOPROLOL SUCCINATE 25 MG TAB XL PO SCH ×2 (08:17→20:55)
[2021-12-07] MEDS: AMLODIPINE BESYLATE 5 MG TAB PO SCH (08:17)
[2021-12-07] MEDS: LOSARTAN POTASSIUM 100 MG TAB PO SCH (08:17)
[2021-12-07] MEDS: ONDANSETRON HCL INJ 2MG/ML 2ML 2 MG/ML VIAL IV PRN (08:44)
[2021-12-07] MEDS ORDERED: SIMETHICONE 40 MG/0.6 ML BTL PO PRN (10:30)
[2021-12-07] MEDS: SIMETHICONE 80 MG CHEW PO PRN ×2 (11:30→20:56)
[2021-12-07] MEDS: MELATONIN 5 MG TABLET PO SCH (20:54)
[2021-12-07] MEDS: HYDROCODONE/APAP 5MG-325MG TAB PO PRN (21:02)
[2021-12-08] VITALS (7 sets, daily range): BP systolic 130–168; BP diastolic 75–100
[2021-12-08] MEDS: HYDRALAZINE HCL 20 MG/ML VIAL IV PRN (00:53)
[2021-12-08] MEDS: ONDANSETRON HCL INJ 2MG/ML 2ML 2 MG/ML VIAL IV PRN ×2 (01:04→14:39)
[2021-12-08] MEDS: HYDROCODONE/APAP 5MG-325MG TAB PO PRN ×3 (01:05→22:33)
[2021-12-08] MEDS: METOPROLOL SUCCINATE 25 MG TAB XL PO SCH (09:10)
[2021-12-08] MEDS: AMLODIPINE BESYLATE 5 MG TAB PO SCH (09:10)
[2021-12-08] MEDS: LOSARTAN POTASSIUM 100 MG TAB PO SCH (09:11)
[2021-12-08] MEDS ORDERED: POTASSIUM CHLORIDE 20 MEQ TAB CR PO NR (12:45)
[2021-12-08] MEDS: METOPROLOL TARTRATE INJ 1 MG/ML VIAL IV PRN (12:45)
[2021-12-08] MEDS: METOPROLOL TARTRATE 50 MG TAB PO SCH (16:59)
[2021-12-08] MEDS: APIXABAN 5 MG TABLET PO SCH (17:00)
[2021-12-08] MEDS: MELATONIN 5 MG TABLET PO SCH ×2 (21:00→22:33)
[2021-12-09] VITALS (8 sets, daily range): BP systolic 112–152; BP diastolic 57–93
[2021-12-09 05:06] LABS: BASOPHILS % 0.3 % (0.0-1.0); EOSINOPHILS # (AUTO) 0.1 (0.0-0.4); EOSINOPHILS % 0.4 % (0.0-6.0); HEMATOCRIT 41.9 % (34.2-44.1); HEMOGLOBIN 13.5 g/dL (12.0-16.0); LYMPHOCYTES # (AUTO) 2.6 (1.0-3.2); LYMPHOCYTES % 20.3 % (18.0-39.1); MEAN CORPUSCULAR HEMOGLOBIN 29.4 pg (28-32); MEAN CORPUSCULAR HGB CONC 32.2 g/dL (31-35); MEAN CORPUSCULAR VOLUME 91.3 fL (81-99); MONOCYTES # (AUTO) 1.1 (0.2-0.8); MONOCYTES % 8.7 % (4.4-11.3); NEUTROPHILS # (AUTO) 9.1 (2.1-6.9); NEUTROPHILS % 69.8 % (38.7-80.0); PLATELET COUNT 373 x10e3/uL (140-360); RED BLOOD COUNT 4.59 x10e6/uL (3.6-5.1); RED CELL DISTRIBUTION WIDTH 14.3 % (11.7-14.4)
[2021-12-09 05:39] LABS: ANION GAP 15.3 mmol/L (8-16); CALCIUM 9.5 mg/dL (8.4-10.2); CREATININE, SERUM 0.77 mg/dL (0.57-1.11); POTASSIUM 4.3 mmol/L (3.5-5.1)
[2021-12-09] MEDS: METOPROLOL TARTRATE 50 MG TAB PO SCH ×2 (08:15→17:00)
[2021-12-09] MEDS: LOSARTAN POTASSIUM 100 MG TAB PO SCH (08:15)
[2021-12-09] MEDS: APIXABAN 5 MG TABLET PO SCH ×2 (08:15→17:00)
[2021-12-09] MEDS: AMLODIPINE BESYLATE 5 MG TAB PO SCH (09:00)
[2021-12-09] MEDS: HYDROCODONE/APAP 5MG-325MG TAB PO PRN (20:43)
[2021-12-09] MEDS: ZOLPIDEM TARTRATE 5 MG TAB PO PRN (20:43)
[2021-12-09] MEDS: MELATONIN 5 MG TABLET PO SCH (21:00)
[2021-12-10] VITALS (7 sets, daily range): BP systolic 124–155; BP diastolic 72–87
[2021-12-10] MEDS: SODIUM CHLORIDE FLUSH 10 ML SYR INJ PRN ×2 (00:53→20:31)
[2021-12-10] MEDS: HYDROCODONE/APAP 5MG-325MG TAB PO PRN ×2 (03:46→20:31)
[2021-12-10] MEDS: METOPROLOL TARTRATE INJ 1 MG/ML VIAL IV PRN (03:58)
[2021-12-10 05:36] LABS: BASOPHILS # (AUTO) 0.1 (0.0-0.1); BASOPHILS % 0.5 % (0.0-1.0); EOSINOPHILS # (AUTO) 0.1 (0.0-0.4); EOSINOPHILS % 1.1 % (0.0-6.0); HEMATOCRIT 38.2 % (34.2-44.1); HEMOGLOBIN 12.7 g/dL (12.0-16.0); LYMPHOCYTES # (AUTO) 2.1 (1.0-3.2); LYMPHOCYTES % 19.5 % (18.0-39.1); MEAN CORPUSCULAR HEMOGLOBIN 29.7 pg (28-32); MEAN CORPUSCULAR HGB CONC 33.2 g/dL (31-35); MEAN CORPUSCULAR VOLUME 89.5 fL (81-99); MONOCYTES # (AUTO) 0.9 (0.2-0.8); MONOCYTES % 8.2 % (4.4-11.3); NEUTROPHILS # (AUTO) 7.5 (2.1-6.9); NEUTROPHILS % 70.1 % (38.7-80.0); PLATELET COUNT 311 x10e3/uL (140-360); RED BLOOD COUNT 4.27 x10e6/uL (3.6-5.1); RED CELL DISTRIBUTION WIDTH 14.3 % (11.7-14.4)
[2021-12-10] MEDS: METOPROLOL TARTRATE 50 MG TAB PO SCH ×2 (08:37→16:51)
[2021-12-10] MEDS: AMLODIPINE BESYLATE 5 MG TAB PO SCH (08:37)
[2021-12-10] MEDS: APIXABAN 5 MG TABLET PO SCH ×2 (08:37→16:51)
[2021-12-10] MEDS: LOSARTAN POTASSIUM 100 MG TAB PO SCH (08:37)
[2021-12-10] MEDS: AMIODARONE HCL 200 MG TAB PO SCH ×2 (11:12→16:51)
[2021-12-10] MEDS ORDERED: ONDANSETRON HCL 4 MG ORAL DISINTEGRATING TAB PO PRN (11:45)
[2021-12-10] MEDS: MELATONIN 5 MG TABLET PO SCH (20:31)
[2021-12-10] MEDS: ZOLPIDEM TARTRATE 5 MG TAB PO PRN (23:42)
[2021-12-11] VITALS: BP 148/82
[2021-12-11 05:05] VITALS: BP 142/89
[2021-12-11] MEDS ORDERED: HYDROCODON-ACE1 EA11 PO (06:57)
[2021-12-11 08:00] VITALS: BP 144/87
[2021-12-11] MEDS: LOSARTAN POTASSIUM 100 MG TAB PO SCH (08:52)
[2021-12-11] MEDS: AMLODIPINE BESYLATE 5 MG TAB PO SCH (08:52)
[2021-12-11] MEDS: APIXABAN 5 MG TABLET PO SCH (08:52)
[2021-12-11] MEDS: AMIODARONE HCL 200 MG TAB PO SCH (08:52)
[2021-12-11] MEDS ORDERED: METOPROLOL TARTRATE 50 MG TAB PO SCH (09:00)
[2021-12-11] MEDS: HYDROCODONE/APAP 5MG-325MG TAB PO PRN (09:09)
[2021-12-11 11:55] VITALS: BP 124/78
[2021-12-11] MEDS ORDERED: AMIODARONE HCL200 MG PO (12:52)
[2021-12-11] MEDS ORDERED: METOPROLOL TART50 MG PO (12:52)
== END 2021-12-11 14:10 | disposition home or self-care (01) | DRG 331 ==
LOC: OR 06:11 → PACU V 08:41 → MED/SURG 10:09
PROVIDERS: ADMIT Surgery; ATTEND Surgery
PROC: 0DBN0ZZ Excision of Sigmoid Colon, Open Approach (ICD-10-PCS; principal; 2021-12-04 07:01)
DX: Z43.3 Encounter for attention to colostomy (principal); Z79.01 Long term (current) use of anticoagulants; I48.0 Paroxysmal atrial fibrillation; Z20.822 Contact with and (suspected) exposure to COVID-19; I10 Essential (primary) hypertension; F17.200 Nicotine dependence, unspecified, uncomplicated; E87.6 Hypokalemia; G47.00 Insomnia, unspecified; J44.9 Chronic obstructive pulmonary disease, unspecified; I25.10 Atherosclerotic heart disease of native coronary artery without angina pectoris; I73.9 Peripheral vascular disease, unspecified; Z95.5 Presence of coronary angioplasty implant and graft; Z95.820 Peripheral vascular angioplasty status with implants and grafts; Z79.899 Other long term (current) drug therapy
CPT/HCPCS: 36415; 80048; 80053; 83735; 84132; 85007; 85025; 85027; 88305; 94799; C1713; J0360; J0694; J1100; J1200; J1885; J2001; J2250; J2270; J2405; J2710; J2765; J3010; U0002

== ENCOUNTER → 2022-05-09 | Outpatient (CLI) | payer SELFPAY ==
[~2022-05-09] MED LIST changes: +AMIODARONE HCL200 MG PO; +METOPROLOL TART50 MG PO
[2022-05-09 13:19] LABS: CREATININE, SERUM 0.78 mg/dL (0.57-1.11)
== END ==
LOC: CT 12:20
PROVIDERS: ATTEND Internal Medicine Interventional Cardiology
DX: R07.9 Chest pain, unspecified (principal); I48.91 Unspecified atrial fibrillation; I25.10 Atherosclerotic heart disease of native coronary artery without angina pectoris; I28.8 Other diseases of pulmonary vessels
CPT/HCPCS: 36415; 71275; 82565; 84520